=== PATIENT | female | born 1955 | race Caucasian/White ===

== ENCOUNTER → 2023-05-28 09:42 | Outpatient (REF) | payer OTHER, SELFPAY | LOC: HWRAD 09:42 | PROVIDERS: ATTENDING PHYSICIAN Internal Medicine Cardiovascular Disease; FAMILY PHYSICIAN Family Medicine | DX: R06.00 Dyspnea, unspecified (principal); I10 Essential (primary) hypertension | CPT/HCPCS: 71046 ==

== ENCOUNTER → 2023-06-19 08:19 | Outpatient (REF) | payer OTHER, SELFPAY | LOC: DHCBC MAIN 08:19 | PROVIDERS: ATTENDING PHYSICIAN Internal Medicine Cardiovascular Disease; FAMILY PHYSICIAN Family Medicine | DX: R06.00 Dyspnea, unspecified (principal); I10 Essential (primary) hypertension | CPT/HCPCS: 93306 ==

== ENCOUNTER → 2023-06-24 11:17 | Outpatient (REF) | payer OTHER, SELFPAY | LOC: DHCBC/DCA 11:17 | PROVIDERS: ATTENDING PHYSICIAN Internal Medicine Cardiovascular Disease; FAMILY PHYSICIAN Family Medicine | DX: R06.00 Dyspnea, unspecified (principal); R07.2 Precordial pain | CPT/HCPCS: 78452; 93017; A9500; J2785 ==

== ENCOUNTER → 2023-08-14 14:04 | Outpatient (REF) | payer OTHER, SELFPAY | LOC: HWRAD 14:04 | PROVIDERS: ATTENDING PHYSICIAN Internal Medicine Gastroenterology; FAMILY PHYSICIAN Family Medicine | DX: R79.89 Other specified abnormal findings of blood chemistry (principal) | CPT/HCPCS: 76700 ==

== ENCOUNTER → 2023-09-02 06:21 | Day surgery (SDC) | payer OTHER, SELFPAY | LOC: GI 06:21 | PROVIDERS: ATTENDING PHYSICIAN Internal Medicine Gastroenterology | DX: Z12.11 Encounter for screening for malignant neoplasm of colon (principal); D12.0 Benign neoplasm of cecum; K63.5 Polyp of colon; K57.30 Diverticulosis of large intestine without perforation or abscess without bleeding; K62.1 Rectal polyp; K64.8 Other hemorrhoids; Z86.010 Personal history of colon polyps | CPT/HCPCS: 45385; 45380; 88305 ==

== ENCOUNTER → 2023-10-09 10:50 | Outpatient (REF) | payer OTHER, SELFPAY | LOC: WDC 10:50 | PROVIDERS: ATTENDING PHYSICIAN Family Medicine | DX: Z12.31 Encounter for screening mammogram for malignant neoplasm of breast (principal) | CPT/HCPCS: 77063; 77067 ==

== ENCOUNTER 2023-10-25 09:16 | Emergency (ER) | payer OTHER, SELFPAY ==
[2023-10-25 09:21] VITALS: BP 116/75
--- NOTE | 2023-10-25 10:00 | ED.GENMED ---
History of Present Illness
<Sandi Hannon PA-C - Last Filed: 10/25/23 15:34>
General
Chief Complaint: Musculo-Skeletal Complaint
Source: patient
Exam Limitations: none
Time Seen by Provider: 10/25/23 09:51
Nursing documentation reviewed up to this point in time: agreed with
History of Present Illness
History of Present Illness:
68 y/o F with h/o HTN, hypothyroid, bipolar
here with L knee pain after accidnetally banging on furniture las tnight 9 pm
swelling and pain with flexion
she has to keep the knee straight due to pain
no hip or ankle pain
no numbnes/tignlign/weakness
took tylenol and motrin this morning
is comfortable as longa s she isn't moving it
Past History
<HOLLI Eagle Last Filed: 10/25/23 15:34>
Past History
ED Past Medical History: HTN, Hypothyroidism and Psychiatric
ED Past Surgical History: and Orthopedic (R knee replacement, femur fx, left hip replaced)
Social History
Tobacco: Non-smoker
Alcohol: Occasional
Personal:
Living: alone
Employment: Not employed
Review of Systems
<HOLLI Eagle Last Filed: 10/25/23 15:34>
Review of Systems
Allergies reviewed?: Yes
All Other Systems: Not applicable
Phy Exam
<HOLLI Eagle Last Filed: 10/25/23 15:34>
Physical Exam
Physical Exam:
GENERAL: Alert , in no apparent distress, comfortable at rest
HEAD: NCAT
CV: 2+ DP PULSES B/L
NEUROLOGICAL: Alert and oriented, no focal neuro deficits, , 5/5 strength, sensation intact, ambulation slight limp right leg
SKIN: Warm and dry, no wounds
MUSCULOSKELETAL: Moderate effusion left knee suprapatellar, mild patellar tenderness, holding the knee completely extended and patient has a lot of pain with any degree of flexion, she is unable to perform straight leg raise mostly probably because
of pain, no hip or ankle pain
PSYCH: Normal and appropriate interaction.
Course
<Sandi Hannon PA-C - Last Filed: 10/25/23 15:34>
Orders/Labs/Results
Orders:
Orders
10/25/23 09:25
Knee, Left 4 or More Views [CR Knee - Left 4 Or More View*] Urgent
Comment:
Reason For Exam: pain injury
10/25/23 10:33
Oxycodone [Roxicodone] 5 mg PO NOW STA
Vital Signs
Initial and Last Documented VS:
Initial Vital Signs
Temp Pulse Resp BP Pulse Ox
98.6 F 56 16 116/75 97
10/25/23 09:21 10/25/23 09:21 10/25/23 09:21 10/25/23 09:21 10/25/23 09:21
Last Documented Vital Signs
Temp Pulse Resp BP Pulse Ox
98.6 F 56 16 116/75 97
10/25/23 09:21 10/25/23 09:21 10/25/23 09:21 10/25/23 09:21 10/25/23 09:21
<Renato Liang MD - Last Filed: 10/25/23 10:37>
Orders/Labs/Results
Orders:
Orders
10/25/23 09:25
Knee, Left 4 or More Views [CR Knee - Left 4 Or More View*] Urgent
Comment:
Reason For Exam: pain injury
10/25/23 10:33
Oxycodone [Roxicodone] 5 mg PO NOW STA
Vital Signs
Initial and Last Documented VS:
Initial Vital Signs
Temp Pulse Resp BP Pulse Ox
98.6 F 56 16 116/75 97
10/25/23 09:21 10/25/23 09:21 10/25/23 09:21 10/25/23 09:21 10/25/23 09:21
Last Documented Vital Signs
Temp Pulse Resp BP Pulse Ox
98.6 F 56 16 116/75 97
10/25/23 09:21 10/25/23 09:21 10/25/23 09:21 10/25/23 09:21 10/25/23 09:21
<Sandi Hannon PA-C - Last Filed: 10/25/23 15:34>
MDM/Problems Addressed
Differential Diagnosis Includes:
Patellar fracture, patellar dislocation, knee effusion
MDM/Problems Addressed:
68-year-old female accidentally banged her left anterior knee on a piece of furniture and now is unable to flex the knee. She has some swelling there as well. It is very painful to weight-bear. She took Tylenol Motrin this morning. There is no
other pain. She is not anticoagulated. On exam she has a mild to moderate suprapatellar knee effusion, no skin lacerations, is tender to the patella, and unable to flex the knee, she is not really able to straight leg raise, likely due to pain.
X-ray independently reviewed by me shows a minimally displaced patellar fracture. Patient seen by ED attending. Knee immobilizer and weightbearing as tolerated. Patient requesting something stronger for pain, counseled to space this out from her
sedating chronic psychiatric meds. Follow-up with Ortho, she has sees an outpatient orthopedist nonaffiliated with [facility]
<Sandi Hannon PA-C - Last Filed: 10/25/23 15:34>
*Critical Care Note
Total Time (30-74mins, 75-104mins- exclusive of procedures): Not Applicable
ED Attending Note
<Sandi Hannon PA-C - Last Filed: 10/25/23 15:34>
-
Portions of this chart may have been created with voice recognition software.� Occasional wrong word or��sound alike� substitutions may have occurred due to the inherent limitations of voice recognition software.
<Renato Liang MD - Last Filed: 10/25/23 10:37>
ED Attending Note
Patient seen and examined by attending physician: Yes
I performed the substantive portion of visit, reviewed & personally made and approve the management plan that is documented in note by myself or CARISSA.: Yes
ED Attending Note:
Patient with a fall last night. Hit her left knee. Unable to ambulate.
Patient with significant swelling over the left patella. Some difficulties with straight leg raising but appears more secondary to pain.
X-ray reviewed which shows a patella fracture essentially nondisplaced.
Knee immobilizer and orthopedic follow-up
Discharge Plan
Departure
Patient Disposition: Home (Routine Discharge)
Date of Disposition: 10/25/23
Time of Disposition: 10:20
Patient with high blood pressure during this ER visit?: No
Condition: Fair
Discharge Problem:
Patellar fracture
Instructions: Patella Fracture (DC)
Prescriptions:
New
oxycodone 5 mg tablet
5 mg PO Q8H PRN (Reason: Pain) Qty: 7 0RF
No Action
Lisinopril 20 MG
20 DAILY
Abilify:
10 mg HS
venlafaxine 75 MG tablet
150 mg PO DAILY
levothyroxine 50 MCG tablet
50 mcg PO DAILY
felodipine 10 MG tablet extended release 24 hr
10 mg PO DAILY
LITHIUM
300 mg HS
Topiramate
400 mg HS
venlafaxine 75 MG tablet
75 mg PO
Patient Comments:
TAKES ADDITIONAL DOSE IN THE AFTERNOON (AT 1400)
Activity Restrictions/Additional Instructions:
keep your leg in the knee immobilizer while you are awake, you can take it off when you are sleeping. Ice off-and-on several times a day. Take Tylenol 3 times a day, ibuprofen 3 times a day and if the pain is severe you can use an oxycodone 5 mg.
This is a narcotic, avoid taking it with your other sedating medications like lorazepam or Seroquel. Take a stool softener when you are on this. Follow-up with orthopedics, call for an appointment tomorrow. Use a walker when you are ambulating.
Discharge Date and Time
Discharge Date/Time: 10/25/23 11:28
Print Language: VENEZUELAN
[2023-10-25] MEDS: ROXICODONE 5 MG PO (11:14)
== END 2023-10-25 11:28 | disposition home or self-care (01) ==
LOC: EMR 09:16
PROVIDERS: EMERGENCY PHYSICIAN Emergency Medicine; FAMILY PHYSICIAN Family Medicine
DX: S82.002A Unspecified fracture of left patella, initial encounter for closed fracture (principal); W19.XXXA Unspecified fall, initial encounter; I10 Essential (primary) hypertension; E03.9 Hypothyroidism, unspecified; Z96.651 Presence of right artificial knee joint
CPT/HCPCS: 99283; 29505; 73564

== ENCOUNTER → 2024-02-02 10:07 | Outpatient (REF) | payer OTHER, SELFPAY | LOC: HWRAD 10:07 | PROVIDERS: ATTENDING PHYSICIAN Internal Medicine; FAMILY PHYSICIAN Family Medicine | DX: M81.0 Age-related osteoporosis without current pathological fracture (principal); Z51.81 Encounter for therapeutic drug level monitoring | CPT/HCPCS: 77080; 77081 ==

== ENCOUNTER → 2024-07-13 08:08 | Outpatient (REF) | payer OTHER, SELFPAY | LOC: HWRCS 08:08 | PROVIDERS: ATTENDING PHYSICIAN Internal Medicine Cardiovascular Disease; FAMILY PHYSICIAN Family Medicine | DX: I34.0 Nonrheumatic mitral (valve) insufficiency (principal) | CPT/HCPCS: 93306 ==

== ENCOUNTER → 2024-07-18 07:07 | Outpatient (REF) | payer OTHER, SELFPAY | LOC: PAVMRI 07:07 | PROVIDERS: ATTENDING PHYSICIAN Physical Medicine & Rehabilitation; FAMILY PHYSICIAN Family Medicine; REFERRING PHYSICIAN Orthopaedic Surgery | DX: M48.062 Spinal stenosis, lumbar region with neurogenic claudication (principal); M47.816 Spondylosis without myelopathy or radiculopathy, lumbar region | CPT/HCPCS: 72148 ==

== ENCOUNTER → 2024-08-11 07:03 | Outpatient (REF) | payer OTHER, SELFPAY | LOC: HWRAD 07:03 | PROVIDERS: ATTENDING PHYSICIAN Family Medicine | DX: N28.1 Cyst of kidney, acquired (principal) | CPT/HCPCS: 76775 ==

== ENCOUNTER → 2024-11-08 16:25 | Outpatient (REF) | payer OTHER, SELFPAY | LOC: WDC 16:25 | PROVIDERS: ATTENDING PHYSICIAN Family Medicine | DX: Z12.31 Encounter for screening mammogram for malignant neoplasm of breast (principal) | CPT/HCPCS: 77063; 77067 ==

== ENCOUNTER → 2024-11-16 10:10 | Outpatient (REF) | payer OTHER, SELFPAY | LOC: WDC 10:10 | PROVIDERS: ATTENDING PHYSICIAN Family Medicine | DX: R92.8 Other abnormal and inconclusive findings on diagnostic imaging of breast (principal) | CPT/HCPCS: 76642 ==

== ENCOUNTER → 2024-11-22 06:23 | Outpatient (REF) | payer OTHER, SELFPAY ==
--- NOTE | 2024-11-22 09:03 | OID.BR.INTR ---
[facility] Navigator - Initial
- -
Date of Contact: 11/22/24
Met with patient. Patient given written information on navigator services available at [facility]. Will follow up as needed per protocol.
== END ==
LOC: WDC 06:23
PROVIDERS: ATTENDING PHYSICIAN Family Medicine
DX: R92.2 Inconclusive mammogram (principal); N63.20 Unspecified lump in the left breast, unspecified quadrant
CPT/HCPCS: 19081; 76098; 88305; 88341; 88360; A4648

== ENCOUNTER → 2024-12-14 07:45 | Outpatient (REF) | payer OTHER, SELFPAY | LOC: WDC 07:45 | PROVIDERS: ATTENDING PHYSICIAN Surgery; FAMILY PHYSICIAN Family Medicine | DX: C50.412 Malignant neoplasm of upper-outer quadrant of left female breast (principal) | CPT/HCPCS: 19281; A4648 ==

== ENCOUNTER 2024-12-16 06:13 | Day surgery (SDC) | payer OTHER, SELFPAY ==
[2024-12-06 08:58] LABS: Hematocrit 40.2 % (37.0-47.0); Hemoglobin 13.0 g/dL (12.0-16.0); Mean Corp Hgb Conc. 32.3 g/dL (33.0-37.0); Mean Corpuscular Volume 95.7 fL (81.0-99.0); Platelet Count 208 10^3/uL (130-400); Red Cell Dist. Width 13.8 % (11.5-14.5)
[2024-12-06 11:00] LABS: ALT (SGPT) 35 U/L (0-35); AST (SGOT) 32 U/L (14-36); Albumin 4.3 g/dl (3.5-5.0); Alkaline Phosphatase 58 U/L (38-126); Blood Urea Nitrogen 17 mg/dl (7-17); Calcium 9.7 mg/dl (8.4-10.2); Carbon Dioxide 29 mmol/L (22-30); Chloride 107 mmol/L (98-107); Glucose 114 mg/dl (70-99); Potassium 5.1 mmol/L (3.5-5.1); Sodium 141 mmol/L (135-145); Total Protein 6.6 g/dl (6.3-8.2); eGFR > 60.00
[2024-12-06 11:06] LABS: Prealbumin (Transthyretin) 25.1 mg/dl (17.6-36.0)
[2024-12-06 14:02] VITALS: BMI 27.0
--- NOTE | 2024-12-06 14:18 | PTCARENOTE ---
Abnormal ECG on 12/06/[address] Long; pre-surgical cardiac clearance requested. Price Lagunas notified.
[2024-12-06 15:20] LABS: Vitamin D, 25-OH*** 81.2 ng/mL (30-80)
[2024-12-16 10:45] VITALS: BP 133/74
[2024-12-16] MEDS: TYLENOL 1000 MG PO (11:00)
[2024-12-16] MEDS: NORMOSOL-R/PLASMALYTE-A 1000 IV (11:01)
[2024-12-16 11:03] VITALS: BMI 27.0
[2024-12-16] MEDS: LOVENOX 40 MG SC (11:53)
[2024-12-16 13:45] VITALS: BP 123/75
--- NOTE | 2024-12-16 13:59 | W.IMMPOSTOP ---
Surgical Immed Post Op Note
-
Primary Surgeon: Sloane
Assisting Surgeon: None
Pre-op Diagnosis: Left breast ca
Post-op Diagnosis: Same
Procedure Performed: Left localized lumpectomy
Anesthesia Type: TIVA
Specimen / Cultures: Left lumpectomy and margins
Estimated Blood Loss: 2cc
Complications: None
Operative Findings:Clip and reflector in specimen
[2024-12-16 14:00] VITALS: BP 143/81
--- NOTE | 2024-12-16 14:00 | OR.RPT ---
Operative Report
Operative Report
The patient is a 69 Y/O female who had an interval change on screening mammography leading to a diagnosis of early stage favorable left breast carcinoma who presents for breast conservation surgery. She met criteria to forego axillary surgical
staging. Prior to the surgical day she presented to the [facility] to have a ENRRIQUE reflector placed at the tumor site. On the date of surgery she presented to the [facility] where she was prepped. She verified
site and procedure and DVT and antibiotic prophylaxis were provided.
She was taken to the operating room and in the supine position, sedation was administered. Her left breast was prepped and draped in the usual sterile fashion and an appropriate time out procedure was performed by all staff members. All tissue were
anesthetized with 1% lidocaine plain. A curvilinear incision was made in the inferior breast overlying the area of highest external ENRRIQUE signal. Skin flaps were elevated with the cautery and a wide lumpectomy was performed. Time out of body was
noted and the specimen was oriented for the pathologist. Specimen radiography confirmed the presence of the biopsy clip and reflector. Additional margins were harvested for permanent analysis from the posterior, superior, medial, lateral, inferior,
and anterior margins and oriented. They were sent under separate cover. Hemostasis was verified and hemoclips were placed in the resection cavity. The wound was closed using simple interrupted 3-O plain gut on the deep, intermediate and subcutaneous
layers. Skin was closed with 4-O monocryl. Sterile glue and a sterile compressive dressing were applied. All sponge, needle and instrument counts were correct and the patient was transferred back to Same Day Surgical Unit for recovery.
()
[2024-12-16 14:15] VITALS: BP 155/79
== END 2024-12-16 14:33 | disposition home or self-care (01) ==
LOC: SDS 06:13
PROVIDERS: ATTENDING PHYSICIAN Surgery; FAMILY PHYSICIAN Family Medicine
DX: C50.412 Malignant neoplasm of upper-outer quadrant of left female breast (principal); Z17.0 Estrogen receptor positive status [ER+]
CPT/HCPCS: 19301; 36415; 76098; 80053; 82306; 84134; 85027; 88305; 88307; 93005